=== PATIENT | male | born 1965 | race Caucasian/White ===

== ENCOUNTER 2017-05-23 16:17 | Inpatient (IN) | payer MEDICAID, OTHER ==
[~2017-05-23] VITALS: Ht 172.7 cm; Wt 80.7 kg
[2017-05-23] MEDS ORDERED: SODIUM CHLORIDE 0.9% 1,000 ML IV ONE (20:07)
[2017-05-23] MEDS ORDERED: MORPHINE SULFATE 4 MG/ML CPJ (NOT FOR IM USE) IV STA (20:07)
[2017-05-23] MEDS ORDERED: ONDANSETRON HCL 4MG/2ML VIAL IV STA (20:07)
[2017-05-23 20:41] LABS: HEMATOCRIT. 32.4 % (42.0-52.0); HEMOGLOBIN. 11.1 g/dL (14.0-18.0); MEAN CORPUSCULAR HEMOGLOBIN 29.5 pg (28.0-32.0); MEAN CORPUSCULAR VOLUME 85.7 fL (80.0-94.0); MEAN PLATELET VOLUME 8.4 fl (7.4-10.4); PLATELET 217 x1000/uL (130-400); RED BLOOD CELL COUNT 3.78 mill/uL (4.7-6.1); RED CELL DISTRIBUTION WIDTH 14.8 % (11.6-14.6)
[2017-05-23 20:44] LABS: INR 1.1
[2017-05-23 20:49] LABS: CARBON DIOXIDE 28 mEq/L (21-32); CHLORIDE 107 mEq/L (98-107)
[2017-05-23 21:19] LABS: PLATELET ESTIMATE NORMAL
[2017-05-23] MEDS ORDERED: ENOXAPARIN 40MG/0.4ML SYR SUBCUT ONE (22:00)
[2017-05-23] MEDS ORDERED: CEFTRIAXONE SODIUM 1 G/VIAL IM ONE (22:00)
[2017-05-23 22:11] LABS: CLARITY URINE CLEAR (CLEAR); COLOR URINE YELLOW (YELLOW); GLUCOSE URINE NEGATIVE (NEGATIVE); KETONES URINE NEGATIVE (NEGATIVE); LEUKOCYTE ESTERASE URINE 2+ (NEGATIVE); NITRITE URINE NEGATIVE (NEGATIVE); OCCULT BLOOD URINE 1+ (NEGATIVE); PH URINE 7.5 (4.5-8.0); PROTEIN URINE TRACE (NEGATIVE); SPECIFIC GRAVITY URINE 1.015 (1.005-1.030)
[2017-05-23] MEDS ORDERED: SODIUM CHLORIDE 0.9% 1,000 ML IV SCH (23:58)
[2017-05-24] MEDS ORDERED: ENOXAPARIN 40MG/0.4ML SYR SUBCUT SCH
[2017-05-24] MEDS ORDERED: DOCUSATE SODIUM 100MG CAPSULE PO PRN ×2 (01:00)
[2017-05-24] MEDS: SODIUM CHLORIDE 0.9% 1,000 ML IV SCH (01:00)
[2017-05-24] MEDS ORDERED: IPRATROPIUM/ALBUTEROL 0.5-3(2.5)MG/3ML NEB INH PRN ×2 (01:00)
[2017-05-24] MEDS ORDERED: ACETAMINOPHEN 325MG TABLET PO PRN ×2 (01:00)
[2017-05-24] MEDS ORDERED: CLONIDINE 0.1MG TABLET PO PRN ×2 (01:00)
[2017-05-24] MEDS ORDERED: MAGNESIUM/ALUMINUM HYDROXIDE/SIMETHICONE 30ML UDC PO PRN ×2 (01:00)
[2017-05-24] MEDS ORDERED: ONDANSETRON HCL 4MG/2ML VIAL IV PRN ×2 (01:00)
[2017-05-24 01:16] LABS: *AMPHETAMINES SCREEN URINE NEGATIVE (NEGATIVE); *BARBITURATES SCREEN URINE NEGATIVE (NEGATIVE); *BENZODIAZEPINES SCREEN URINE NEGATIVE (NEGATIVE); *COCAINE SCREEN URINE NEGATIVE (NEGATIVE); CANNABINOID URINE SCREEN NEGATIVE (NEGATIVE); METHADONE URINE SCREEN NEGATIVE (NEGATIVE); OPIATES URINE SCREEN PRESUMTIVE POSITIVE (NEGATIVE); PHENCYCLIDINE URINE SCREEN NEGATIVE (NEGATIVE)
[2017-05-24 01:30] VITALS: BP 99/56
[2017-05-24 04:00] VITALS: BP 108/71
[2017-05-24] MEDS ORDERED: CEFTRIAXONE 1 G PREMIX 50 ML IV SCH ×2 (04:00)
[2017-05-24 07:14] LABS: CARBON DIOXIDE 26 mEq/L (21-32); CHLORIDE 107 mEq/L (98-107); LDL CHOLESTEROL 89 mg/dL (5-100)
[2017-05-24 07:22] LABS: HDL CHOLESTEROL 29 mg/dL (40-59)
[2017-05-24 07:55] LABS: CARCINO EMBRYONIC ANTIGEN 24.5 ng/ml
[2017-05-24 08:00] VITALS: BP 107/63
[2017-05-24 08:03] LABS: PROSTRATE SPECIFIC AG TOTAL 0.09 ng/mL (0.0-4.0)
[2017-05-24] MEDS: ENOXAPARIN 40MG/0.4ML SYR SUBCUT SCH (09:24)
[2017-05-24] MEDS: TRAMADOL 50MG TABLET PO PRN ×2 (10:30→20:41)
[2017-05-24] MEDS: CEFTRIAXONE 1 G PREMIX 50 ML IV SCH (10:40)
[2017-05-24 12:00] VITALS: BP 101/64
[2017-05-24] MEDS ORDERED: DEXTROSE 50% WATER 50ML SYRINGE IV PRN (12:45)
[2017-05-24] MEDS: BLOOD SUGAR DIAGNOSTIC STRIP TEST SCH ×3 (12:53→20:41)
[2017-05-24] MEDS: INSULIN LISPRO 100 UNITS/ML SUBCUT SCH ×3 (13:08→20:41)
[2017-05-24] MEDS: MORPHINE SULFATE 4 MG/ML CPJ (NOT FOR IM USE) IV PRN ×3 (13:33→23:38)
[2017-05-24 16:00] VITALS: BP 97/65
[2017-05-24 20:00] VITALS: BP 98/54
[2017-05-25] VITALS: BP 114/66
[2017-05-25 04:00] VITALS: BP 94/50
[2017-05-25] MEDS: SODIUM CHLORIDE 0.9% 1,000 ML IV SCH ×3 (06:16→23:59)
[2017-05-25] MEDS: MORPHINE SULFATE 4 MG/ML CPJ (NOT FOR IM USE) IV PRN ×4 (06:18→19:56)
[2017-05-25] MEDS: BLOOD SUGAR DIAGNOSTIC STRIP TEST SCH ×4 (06:54→21:00)
[2017-05-25 07:37] VITALS: BP 115/75
[2017-05-25] MEDS: INSULIN LISPRO 100 UNITS/ML SUBCUT SCH ×4 (07:50→21:00)
[2017-05-25] MEDS: CEFTRIAXONE 1 G PREMIX 50 ML IV SCH (08:20)
[2017-05-25] MEDS: ENOXAPARIN 40MG/0.4ML SYR SUBCUT SCH (08:21)
[2017-05-25 12:08] VITALS: BP 105/54
[2017-05-25 15:50] VITALS: BP 98/47
[2017-05-25 20:00] VITALS: BP 110/60
[2017-05-26] VITALS (13 sets, daily range): BP systolic 100–122; BP diastolic 43–81
[2017-05-26] MEDS: MORPHINE SULFATE 4 MG/ML CPJ (NOT FOR IM USE) IV PRN ×4 (00:01→19:55)
[2017-05-26 05:45] LABS: CHLORIDE 105 mEq/L (98-107)
[2017-05-26 05:57] LABS: CARBON DIOXIDE 27 mEq/L (21-32)
[2017-05-26 06:02] LABS: BASOPHILS % 0.5 % (0.0-2.0); EOSINOPHILS % 0.1 % (0.0-5.0); HEMATOCRIT. 32.2 % (42.0-52.0); HEMOGLOBIN. 11.1 g/dL (14.0-18.0); LYMPHOCYTES % 31.4 % (20.0-50.0); MEAN CORPUSCULAR VOLUME 84.4 fL (80.0-94.0); MEAN PLATELET VOLUME 7.7 fl (7.4-10.4); PLATELET 247 x1000/uL (130-400); RED BLOOD CELL COUNT 3.81 mill/uL (4.7-6.1); RED CELL DISTRIBUTION WIDTH 14.4 % (11.6-14.6)
[2017-05-26] MEDS: BLOOD SUGAR DIAGNOSTIC STRIP TEST SCH ×4 (07:28→20:02)
[2017-05-26] MEDS: INSULIN LISPRO 100 UNITS/ML SUBCUT SCH ×4 (07:50→20:02)
[2017-05-26] MEDS: ENOXAPARIN 40MG/0.4ML SYR SUBCUT SCH (08:20)
[2017-05-26] MEDS: SODIUM CHLORIDE 0.9% 1,000 ML IV SCH ×2 (11:46→20:02)
[2017-05-26] MEDS: CEFTRIAXONE 1 G PREMIX 50 ML IV SCH (11:46)
[2017-05-26] MEDS ORDERED: CEPH500C2 PO (12:14)
[2017-05-26] MEDS ORDERED: DOCU-272 PO (12:14)
[2017-05-26] MEDS ORDERED: SULF1TAB48 PO (12:14)
[2017-05-26] MEDS ORDERED: ZOLP5TAB8 PO (12:14)
[2017-05-26] MEDS ORDERED: VENL150C2 PO (12:14)
[2017-05-26] MEDS ORDERED: TRAZ-132 PO (12:14)
[2017-05-26] MEDS ORDERED: MORP60TA6 PO (12:14)
[2017-05-26] MEDS ORDERED: METF500T4 PO (12:14)
[2017-05-26] MEDS ORDERED: TAMS0.4C31 PO (12:14)
[2017-05-26] MEDS ORDERED: FENTANYL CITRATE/PF 50MCG/ML 2ML VIAL ONE (13:15)
[2017-05-26] MEDS ORDERED: LIDOCAINE HCL 1% 20ML VIAL (Pyxis) INJ ONE (13:41)
[2017-05-26] MEDS ORDERED: SODIUM BICARBONATE 4% (2.4MEQ) 5ML VIAL IV ONE (13:42)
[2017-05-26] MEDS ORDERED: FENTANYL CITRATE/PF 50MCG/ML 2ML VIAL IV ONE (14:30)
[2017-05-26] MEDS: TAMSULOSIN HCL 0.4MG SR CAPSULE PO SCH (18:17)
[2017-05-26] MEDS: METFORMIN HCL 500MG TABLET PO SCH (18:42)
[2017-05-26] MEDS: DOCUSATE SODIUM 100MG CAPSULE PO SCH (18:43)
[2017-05-26] MEDS ORDERED: ZOLPIDEM TARTRATE 5MG TABLET PO SCH (21:00)
[2017-05-26] MEDS ORDERED: TRAZODONE HCL 100MG TABLET PO SCH (21:00)
[2017-05-27] VITALS (7 sets, daily range): BP systolic 102–118; BP diastolic 55–78
[2017-05-27] MEDS: MORPHINE SULFATE 4 MG/ML CPJ (NOT FOR IM USE) IV PRN ×2 (02:49→09:57)
[2017-05-27] MEDS: BLOOD SUGAR DIAGNOSTIC STRIP TEST SCH ×3 (07:20→17:46)
[2017-05-27 07:34] LABS: BASOPHILS % 0.4 % (0.0-2.0); EOSINOPHILS % 0.1 % (0.0-5.0); HEMATOCRIT. 32.7 % (42.0-52.0); HEMOGLOBIN. 11.2 g/dL (14.0-18.0); LYMPHOCYTES % 32.7 % (20.0-50.0); MEAN CORPUSCULAR HEMOGLOBIN 29.1 pg (28.0-32.0); MEAN CORPUSCULAR VOLUME 84.8 fL (80.0-94.0); MEAN PLATELET VOLUME 7.6 fl (7.4-10.4); MONOCYTES % 10.5 % (2.0-8.0); NEUTROPHILS % 56.3 % (40.0-76.0); PLATELET 264 x1000/uL (130-400); RED BLOOD CELL COUNT 3.85 mill/uL (4.7-6.1); RED CELL DISTRIBUTION WIDTH 14.3 % (11.6-14.6)
[2017-05-27] MEDS: INSULIN LISPRO 100 UNITS/ML SUBCUT SCH ×3 (07:50→17:46)
[2017-05-27] MEDS ORDERED: IOHEXOL-300 100 ML BOTTLE ONE (08:29)
[2017-05-27 08:47] LABS: CARBON DIOXIDE 26 mEq/L (21-32); CHLORIDE 105 mEq/L (98-107)
[2017-05-27] MEDS: TAMSULOSIN HCL 0.4MG SR CAPSULE PO SCH (09:37)
[2017-05-27] MEDS: METFORMIN HCL 500MG TABLET PO SCH ×2 (09:37→17:53)
[2017-05-27] MEDS: DOCUSATE SODIUM 100MG CAPSULE PO SCH ×2 (09:37→17:00)
[2017-05-27] MEDS: ENOXAPARIN 40MG/0.4ML SYR SUBCUT SCH (09:37)
[2017-05-27] MEDS: CEFTRIAXONE 1 G PREMIX 50 ML IV SCH (09:38)
[2017-05-27] MEDS: SODIUM CHLORIDE 0.9% 1,000 ML IV SCH (09:39)
== END 2017-05-27 20:49 | disposition home or self-care (01) | DRG 254 ==
LOC: ER 16:18 → 6EST 22:32 → ENRESERV 23:06 → ER 05-24 00:45
PROVIDERS: ADMIT Internal Medicine; ATTEND Internal Medicine
PROC: 0DBP3ZX Excision of Rectum, Percutaneous Approach, Diagnostic (ICD-10-PCS; principal; 2017-05-26)
DX: R19.09 Other intra-abdominal and pelvic swelling, mass and lump (principal); R16.2 Hepatomegaly with splenomegaly, not elsewhere classified; I10 Essential (primary) hypertension; N39.0 Urinary tract infection, site not specified; E11.9 Type 2 diabetes mellitus without complications; J45.909 Unspecified asthma, uncomplicated; Z85.048 Personal history of other malignant neoplasm of rectum, rectosigmoid junction, and anus; Z93.3 Colostomy status; Z86.718 Personal history of other venous thrombosis and embolism; Z79.84 Long term (current) use of oral hypoglycemic drugs; G89.3 Neoplasm related pain (acute) (chronic)
CPT/HCPCS: 36415; 71010; 74176; 76870; 77012; 80048; 80053; 80061; 80305; 81001; 82378; 82962; 83690; 84153; 84443; 85025; 85610; 87040; 87086; 88305; 93005; 93971; 93976; 96374; 96375; 99285; C1893; J0696; J1650; J1815; J2270; J2405; J3010; J3490; J7030; Q9967

== ENCOUNTER 2018-03-06 16:08 | Inpatient (IN) | payer MEDICAID, OTHER ==
[~2018-03-06] VITALS: Ht 167.6 cm; Wt 86.2 kg
[~2018-03-06 16:08] MED LIST: CEPH500C2 PO; DOCU-272 PO; METF500T6 PO; MORP60TA6 PO; SULF1TAB48 PO; TAMS0.4C31 PO; TRAZ-213 PO; VENL150C2 PO; ZOLP5TAB8 PO
[2018-03-06] MEDS ORDERED: SODIUM CHLORIDE 0.9% 1,000 ML IV ONE ×2 (17:39→21:16)
[2018-03-06 18:15] LABS: MEAN CORPUSCULAR HEMOGLOBIN 23.9 pg (28.0-32.0); MEAN CORPUSCULAR VOLUME 76.9 fL (80.0-94.0); MEAN PLATELET VOLUME 7.4 fl (7.4-10.4); PLATELET 168 x1000/uL (130-400); RED BLOOD CELL COUNT 2.79 mill/uL (4.7-6.1); RED CELL DISTRIBUTION WIDTH 19.8 % (11.6-14.6)
[2018-03-06 18:21] LABS: HEMATOCRIT. 21.4 % (42.0-52.0); HEMOGLOBIN. 6.7 g/dL (14.0-18.0)
[2018-03-06 18:22] LABS: INR 1.1
[2018-03-06 18:23] LABS: CHLORIDE 90 mEq/L (98-107)
[2018-03-06] MEDS ORDERED: PIPERACILLIN/TAZ 3.375G PREMIX 50 ML IV ONE (18:30)
[2018-03-06] MEDS ORDERED: SODIUM CHLORIDE 0.9% 1000ML BAG (SEPSIS BOLUS) IV ONE (18:30)
[2018-03-06] MEDS ORDERED: MORPHINE SULFATE 2 MG/ML CPJ (NOT FOR IM USE) IV ONE (18:30)
[2018-03-06] MEDS ORDERED: VANCOMYCIN 1 G PREMIX 200 ML IV ONE (18:30)
[2018-03-06] MEDS ORDERED: SODIUM POLYSTYRENE SULFONATE 15 G/60 ML BOT PO ONE (19:00)
[2018-03-06] MEDS ORDERED: INSULIN REGULAR (HUMULIN R) 300UNITS/3ML IV ONE (19:00)
[2018-03-06] MEDS ORDERED: CALCIUM GLUCONATE 100MG/ML 10ML VIAL IV ONE (19:00)
[2018-03-06] MEDS ORDERED: DEXTROSE 50% WATER 50ML SYRINGE IV ONE (19:00)
[2018-03-06] MEDS ORDERED: SODIUM BICARBONATE 8.4% 1 MEQ/ML 50ML SYR IV ONE ×3 (19:00→22:45)
[2018-03-06] MEDS ORDERED: ALBUTEROL (0.083%) 2.5MG/3ML NEB HHN ONE (19:00)
[2018-03-06 19:30] LABS: NUCLEATED RED BLOOD CELLS 1 /100 WBC; PLATELET ESTIMATE NORMAL
[2018-03-06 20:08] LABS: AMMONIA 27 uMol/L (<32)
[2018-03-06] MEDS ORDERED: DOPAMINE 400MG PREMIX 250 ML IV ONE (21:30)
[2018-03-06 22:01] LABS: BG BASE EXCESS -19.7 mmol/L (-2.0-2.0); BG CARBOXYHEMOGLOBIN 0.3 % (0.5-1.5); BG DEOXYHEMOGLOBIN 3.3 % (0.0-5.0); BG FRACTION INSPIRED OXYGEN 28; BG HCO3 ACT 5.5 mmol/L (22.0-26.0); BG METHEMOGLOBIN 0.6 % (0.0-1.5); BG OXYGEN SATURATION 96.7 % (92.0-98.5); BG OXYHEMOGLOBIN 95.8 % (94.0-97.0); BG PCO2 12.4 mmHg (35.0-45.0); BG PH 7.261 (7.350-7.450); BG PO2 116.6 mmHg (75.0-100.0); BG SAMPLE SITE RIGHT BRACHIAL; BG TOTAL HEMOGLOBIN 7.1 g/dL (12.0-18.0); BG VENT MODE NASAL CANNULA
[2018-03-06] MEDS ORDERED: MORPHINE SULFATE 4 MG/ML CPJ (NOT FOR IM USE) IV ONE (22:30)
[2018-03-06] MEDS ORDERED: ONDANSETRON HCL 4MG/2ML VIAL IV PRN (22:45)
[2018-03-06] MEDS ORDERED: IPRATROPIUM/ALBUTEROL 0.5-3(2.5)MG/3ML NEB INH PRN (22:45)
[2018-03-06] MEDS ORDERED: PIPERACILLIN/TAZ 3.375G PREMIX 50 ML IV SCH (22:45)
[2018-03-06 23:42] LABS: CLARITY URINE CLOUDY (CLEAR); COLOR URINE RED (YELLOW); KETONES URINE NEGATIVE (NEGATIVE); LEUKOCYTE ESTERASE URINE 2+ (NEGATIVE); NITRITE URINE POSITIVE (NEGATIVE); OCCULT BLOOD URINE 3+ (NEGATIVE); PH URINE 5.5 (4.5-8.0); PROTEIN URINE 3+ (NEGATIVE); SPECIFIC GRAVITY URINE 1.014 (1.005-1.030); UROBILINOGEN URINE 0.2 E.U./dL (0.2-1.0)
[2018-03-07] VITALS (114 sets, daily range): BP systolic 58–149; BP diastolic 29–117
[2018-03-07] MEDS ORDERED: LORAZEPAM 2MG/ML CPJ IV ONE (00:15)
[2018-03-07] MEDS ORDERED: LEVETIRACETAM 500MG PREMIX 100 ML IV ONE (00:15)
[2018-03-07 00:39] LABS: *AMPHETAMINES SCREEN URINE NEGATIVE (NEGATIVE); *BARBITURATES SCREEN URINE NEGATIVE (NEGATIVE); *BENZODIAZEPINES SCREEN URINE NEGATIVE (NEGATIVE); *COCAINE SCREEN URINE NEGATIVE (NEGATIVE); CANNABINOID URINE SCREEN NEGATIVE (NEGATIVE); OPIATES URINE SCREEN PRESUMTIVE POSITIVE (NEGATIVE); PHENCYCLIDINE URINE SCREEN NEGATIVE (NEGATIVE)
[2018-03-07 00:40] LABS: METHADONE URINE SCREEN NEGATIVE (NEGATIVE)
[2018-03-07] MEDS: DOPAMINE 800MG PREMIX 250 ML IV NR ×2 (00:55→01:25)
[2018-03-07] MEDS ORDERED: VANCOMYCIN 1 G PREMIX 200 ML IV NR (02:00)
[2018-03-07] MEDS ORDERED: SODIUM CHLORIDE 0.9% 1,000 ML IV SCH (05:00)
[2018-03-07 05:19] LABS: CHLORIDE 97 mEq/L (98-107)
[2018-03-07 05:24] LABS: HEMATOCRIT. 28.2 % (42.0-52.0); HEMOGLOBIN. 8.9 g/dL (14.0-18.0); MEAN CORPUSCULAR HEMOGLOBIN 25.3 pg (28.0-32.0); MEAN CORPUSCULAR VOLUME 79.9 fL (80.0-94.0); MEAN PLATELET VOLUME 7.9 fl (7.4-10.4); PLATELET 140 x1000/uL (130-400); RED BLOOD CELL COUNT 3.53 mill/uL (4.7-6.1); RED CELL DISTRIBUTION WIDTH 21.1 % (11.6-14.6)
[2018-03-07 05:27] LABS: LDL CHOLESTEROL 47 mg/dL (5-100)
[2018-03-07 05:29] LABS: CREATINE KINASE 200 IU/L (39-308); HDL CHOLESTEROL 27 mg/dL (40-59)
[2018-03-07 05:32] LABS: CREATINE KINASE MB FRACTION 5.8 ng/mL (0.5-3.6)
[2018-03-07] MEDS: MORPHINE SULFATE 4 MG/ML CPJ (NOT FOR IM USE) IV PRN ×2 (06:11→13:03)
[2018-03-07] MEDS ORDERED: VANCOMYCIN 500 MG PREMIX 100 ML IV NR (06:30)
[2018-03-07] MEDS: PIPERACILLIN/TAZ 2.25G PREMIX 50 ML IV SCH ×3 (06:59→22:30)
[2018-03-07] MEDS ORDERED: DEXTROSE 50% WATER 50ML SYRINGE IV NR (07:10)
[2018-03-07] MEDS ORDERED: SODIUM BICARBONATE 8.4% 1 MEQ/ML 50ML SYR IV NR (07:10)
[2018-03-07] MEDS ORDERED: INSULIN REGULAR (HUMULIN R) 300UNITS/3ML IV NR (07:15)
[2018-03-07] MEDS ORDERED: CALCIUM CHLORIDE 1GM/10ML SYR IV ONE (07:15)
[2018-03-07] MEDS ORDERED: CALCIUM CHLORIDE 2,000 MG in DEXT 5% WATER 90 ML IV NR (07:30)
[2018-03-07] MEDS ORDERED: MANNITOL 20% (20GM/100ML) BAG 500ML PREMIX IV ONE (07:30)
[2018-03-07 08:31] LABS: PLATELET ESTIMATE NORMAL
[2018-03-07] MEDS ORDERED: MANNITOL 20% 125 ML IV PRN (08:45)
[2018-03-07] MEDS ORDERED: MORPHINE SULFATE 4 MG/ML CPJ (NOT FOR IM USE) IV SCH (08:45)
[2018-03-07 09:01] LABS: BG CARBOXYHEMOGLOBIN 0.3 % (0.5-1.5); BG DEOXYHEMOGLOBIN 2.2 % (0.0-5.0); BG HCO3 ACT 7.8 mmol/L (22.0-26.0); BG METHEMOGLOBIN 0.2 % (0.0-1.5); BG OXYGEN SATURATION 97.8 % (92.0-98.5); BG OXYHEMOGLOBIN 97.3 % (94.0-97.0); BG PH 7.335 (7.350-7.450); BG PO2 114.8 mmHg (75.0-100.0); BG SAMPLE SITE LEFT RADIAL; BG VENT MODE NASAL CANNULA
[2018-03-07] MEDS ORDERED: DOPAMINE 400MG PREMIX 250 ML IV PRN (10:00)
[2018-03-07] MEDS ORDERED: DEXT 5%/0.9% NACL 1,000 ML IV SCH (10:45)
[2018-03-07] MEDS ORDERED: ALBUMIN HUMAN 25GM/100ML (25%) IV SCH (11:03)
[2018-03-07] MEDS: NOREPINEPHRINE 8 MG in DEXT 5% WATER 250 ML IV PRN (11:22)
[2018-03-07] MEDS: PROPOFOL 10MG/ML 100ML 100 ML IV PRN (12:50)
[2018-03-07] MEDS ORDERED: DEXTROSE 50% WATER 50ML SYRINGE IV PRN (13:45)
[2018-03-07] MEDS ORDERED: IPRATROPIUM/ALBUTEROL 0.5-3(2.5)MG/3ML NEB HHN PRN (14:00)
[2018-03-07] MEDS: DEXTROSE 50% WATER 50ML SYRINGE IV PRN ×2 (14:06→20:18)
[2018-03-07 14:21] LABS: BG CARBOXYHEMOGLOBIN 0.7 % (0.5-1.5); BG DEOXYHEMOGLOBIN 3.8 % (0.0-5.0); BG METHEMOGLOBIN 0.2 % (0.0-1.5); BG OXYGEN SATURATION 96.2 % (92.0-98.5); BG OXYHEMOGLOBIN 95.3 % (94.0-97.0); BG PCO2 29.3 mmHg (35.0-45.0); BG PH 7.474 (7.350-7.450); BG PO2 87.6 mmHg (75.0-100.0); BG SAMPLE SITE RIGHT RADIAL; BG TIDAL VOLUME(mL) 600 mL; BG VENT MODE VENT - A/C; BG VENT RATE 12 set
[2018-03-07] MEDS: DOPAMINE 800MG PREMIX 250 ML IV PRN (14:21)
[2018-03-07] MEDS ORDERED: NORMAL SALINE 0.9% 10 ML SYR ONE (14:35)
[2018-03-07] MEDS ORDERED: VECURONIUM BROMIDE 10 MG/VIAL IV ONE (14:35)
[2018-03-07] MEDS ORDERED: ETOMIDATE 2MG/ML 10ML VIAL IV ONE (14:35)
[2018-03-07 14:54] LABS: HEMOGLOBIN 7.8 g/dL (14.0-18.0)
[2018-03-07 15:56] LABS: CREATINE KINASE 130 IU/L (39-308)
[2018-03-07] MEDS: BLOOD SUGAR DIAGNOSTIC STRIP TEST SCH ×2 (18:02→23:57)
[2018-03-07] MEDS: NOREPINEPHRINE 16 MG in DEXT 5% WATER 234 ML IV PRN (18:06)
[2018-03-07] MEDS ORDERED: PANTOPRAZOLE SODIUM 40 MG/VIAL IV NR (20:00)
[2018-03-07] MEDS ORDERED: VANCOMYCIN 750 MG PREMIX 150 ML IV SCH (21:00)
[2018-03-07] MEDS: IPRATROPIUM/ALBUTEROL 0.5-3(2.5)MG/3ML NEB HHN SCH (21:09)
[2018-03-07 23:38] LABS: HEMATOCRIT 34.4 % (42.0-52.0); HEMOGLOBIN 11.4 g/dL (14.0-18.0)
[2018-03-08] VITALS (99 sets, daily range): BP systolic 78–151; BP diastolic 37–99
[2018-03-08] MEDS: PROPOFOL 10MG/ML 100ML 100 ML IV PRN ×4 (00:52→23:19)
[2018-03-08] MEDS: DOPAMINE 800MG PREMIX 250 ML IV PRN ×2 (03:38→15:27)
[2018-03-08] MEDS: PIPERACILLIN/TAZ 2.25G PREMIX 50 ML IV SCH ×3 (05:37→21:22)
[2018-03-08] MEDS: BLOOD SUGAR DIAGNOSTIC STRIP TEST SCH ×4 (05:37→23:20)
[2018-03-08 06:54] LABS: PHOSPHORUS 8.5 mg/dL (2.5-4.9)
[2018-03-08] MEDS: NOREPINEPHRINE 16 MG in DEXT 5% WATER 234 ML IV PRN ×2 (07:30→21:22)
[2018-03-08 07:44] LABS: HEPATITIS B SURFACE ANTIGEN NEGATIVE
[2018-03-08] MEDS: IPRATROPIUM/ALBUTEROL 0.5-3(2.5)MG/3ML NEB HHN SCH ×4 (08:29→20:11)
[2018-03-08] MEDS: PANTOPRAZOLE SODIUM 40 MG/VIAL IV SCH (09:21)
[2018-03-08 09:25] LABS: BASOPHILS % 0.2 % (0.0-2.0); EOSINOPHILS % 0.1 % (0.0-5.0); HEMATOCRIT. 29.9 % (42.0-52.0); HEMOGLOBIN. 10.1 g/dL (14.0-18.0); LYMPHOCYTES % 8.7 % (20.0-50.0); MEAN CORPUSCULAR HEMOGLOBIN 27.1 pg (28.0-32.0); MEAN PLATELET VOLUME 8.3 fl (7.4-10.4); MONOCYTES % 4.4 % (2.0-8.0); NEUTROPHILS % 86.6 % (40.0-76.0); RED BLOOD CELL COUNT 3.74 mill/uL (4.7-6.1); RED CELL DISTRIBUTION WIDTH 20.5 % (11.6-14.6)
[2018-03-08 09:27] LABS: PLATELET 52 x1000/uL (130-400)
[2018-03-08] MEDS ORDERED: SODIUM BICARBONATE 8.4% 1 MEQ/ML 50ML SYR IV SCH (09:45)
[2018-03-08] MEDS ORDERED: CALCIUM GLUCONATE 1,000 MG in DEXT 5% WATER 90 ML IV SCH (10:30)
[2018-03-08] MEDS: SODIUM BICARBONATE 100 MEQ in DEXT 10% WATER 900 ML IV SCH (12:05)
[2018-03-09] VITALS (86 sets, daily range): BP systolic 81–148; BP diastolic 46–108
[2018-03-09] MEDS: IPRATROPIUM/ALBUTEROL 0.5-3(2.5)MG/3ML NEB HHN SCH ×6 (01:33→20:53)
[2018-03-09] MEDS: DOPAMINE 800MG PREMIX 250 ML IV PRN (03:47)
[2018-03-09 05:47] LABS: BASOPHILS % 0.2 % (0.0-2.0); EOSINOPHILS % 0.2 % (0.0-5.0); HEMATOCRIT. 29.4 % (42.0-52.0); HEMOGLOBIN. 9.8 g/dL (14.0-18.0); MEAN CORPUSCULAR HEMOGLOBIN 27.1 pg (28.0-32.0); MEAN CORPUSCULAR VOLUME 81.5 fL (80.0-94.0); MEAN PLATELET VOLUME 9.2 fl (7.4-10.4); MONOCYTES % 3.4 % (2.0-8.0); NEUTROPHILS % 88.2 % (40.0-76.0); RED BLOOD CELL COUNT 3.61 mill/uL (4.7-6.1); RED CELL DISTRIBUTION WIDTH 20.3 % (11.6-14.6)
[2018-03-09 06:26] LABS: PLATELET 41 x1000/uL (130-400)
[2018-03-09] MEDS: BLOOD SUGAR DIAGNOSTIC STRIP TEST SCH ×4 (06:26→23:27)
[2018-03-09] MEDS: PIPERACILLIN/TAZ 2.25G PREMIX 50 ML IV SCH ×3 (06:33→21:29)
[2018-03-09] MEDS: FENTANYL CITRATE/PF 500 MCG in SODIUM CHLORIDE 0.9% 40 ML IV PRN ×3 (07:55→22:27)
[2018-03-09 07:57] LABS: BG BASE EXCESS -5.3 mmol/L (-2.0-2.0); BG FRACTION INSPIRED OXYGEN 50; BG HCO3 ACT 16.6 mmol/L (22.0-26.0); BG PCO2 24.3 mmHg (35.0-45.0); BG PH 7.452 (7.350-7.450); BG PO2 143.3 mmHg (75.0-100.0); BG SAMPLE SITE RIGHT RADIAL; BG TIDAL VOLUME(mL) 600 mL; BG VENT MODE VENT - A/C; BG VENT RATE 12 set
[2018-03-09] MEDS: MIDAZOLAM HCL 50 MG in DEXTROSE 5% WATER 40 ML IV PRN ×2 (07:57→13:10)
[2018-03-09] MEDS: PANTOPRAZOLE SODIUM 40 MG/VIAL IV SCH (08:06)
[2018-03-09] MEDS: PHENYLEPHRINE 40 MG in DEXT 5% WATER 246 ML IV PRN ×3 (11:00→20:57)
[2018-03-09] MEDS: SODIUM BICARBONATE 100 MEQ in DEXT 10% WATER 900 ML IV SCH (16:19)
[2018-03-09] MEDS: NOREPINEPHRINE 16 MG in DEXT 5% WATER 234 ML IV PRN (16:22)
[2018-03-10] VITALS (94 sets, daily range): BP systolic 82–124; BP diastolic 49–82
[2018-03-10] MEDS: MIDAZOLAM HCL 50 MG in DEXTROSE 5% WATER 40 ML IV PRN ×2 (00:14→11:19)
[2018-03-10] MEDS: IPRATROPIUM/ALBUTEROL 0.5-3(2.5)MG/3ML NEB HHN SCH ×6 (01:24→20:12)
[2018-03-10] MEDS: PHENYLEPHRINE 40 MG in DEXT 5% WATER 246 ML IV PRN ×3 (02:19→20:55)
[2018-03-10] MEDS: NOREPINEPHRINE 16 MG in DEXT 5% WATER 234 ML IV PRN ×2 (02:55→18:04)
[2018-03-10 04:46] LABS: BASOPHILS % 0.3 % (0.0-2.0); EOSINOPHILS % 0.9 % (0.0-5.0); HEMATOCRIT. 27.9 % (42.0-52.0); HEMOGLOBIN. 9.3 g/dL (14.0-18.0); LYMPHOCYTES % 9.6 % (20.0-50.0); MEAN CORPUSCULAR HEMOGLOBIN 27.4 pg (28.0-32.0); MEAN CORPUSCULAR VOLUME 82.4 fL (80.0-94.0); MONOCYTES % 3.3 % (2.0-8.0); NEUTROPHILS % 85.9 % (40.0-76.0); RED BLOOD CELL COUNT 3.38 mill/uL (4.7-6.1); RED CELL DISTRIBUTION WIDTH 19.8 % (11.6-14.6)
[2018-03-10] MEDS: BLOOD SUGAR DIAGNOSTIC STRIP TEST SCH ×3 (05:29→18:08)
[2018-03-10] MEDS: PIPERACILLIN/TAZ 2.25G PREMIX 50 ML IV SCH ×3 (05:29→21:00)
[2018-03-10 07:20] LABS: BG BASE EXCESS -7.2 mmol/L (-2.0-2.0); BG CARBOXYHEMOGLOBIN 0.3 % (0.5-1.5); BG DEOXYHEMOGLOBIN 1.7 % (0.0-5.0); BG FRACTION INSPIRED OXYGEN 40; BG HCO3 ACT 17.1 mmol/L (22.0-26.0); BG METHEMOGLOBIN 0.5 % (0.0-1.5); BG OXYGEN SATURATION 98.3 % (92.0-98.5); BG OXYHEMOGLOBIN 97.5 % (94.0-97.0); BG PCO2 30.1 mmHg (35.0-45.0); BG PH 7.372 (7.350-7.450); BG PO2 153.3 mmHg (75.0-100.0); BG SAMPLE SITE RIGHT BRACHIAL; BG TIDAL VOLUME(mL) 550 mL; BG TOTAL HEMOGLOBIN 9.6 g/dL (12.0-18.0); BG VENT MODE VENT - A/C; BG VENT RATE 16 set
[2018-03-10] MEDS ORDERED: CALCIUM GLUCONATE 1,000 MG in DEXT 5% WATER 90 ML IV NR (08:00)
[2018-03-10] MEDS: PANTOPRAZOLE SODIUM 40 MG/VIAL IV SCH (09:46)
[2018-03-10] MEDS: SODIUM BICARBONATE 100 MEQ in SODIUM CHLORIDE 0.45% 1,000 ML IV SCH (09:46)
[2018-03-10 09:55] LABS: MEAN PLATELET VOLUME 9.6 fl (7.4-10.4); PLATELET 52 x1000/uL (130-400)
[2018-03-10] MEDS: FENTANYL CITRATE/PF 500 MCG in SODIUM CHLORIDE 0.9% 40 ML IV PRN ×2 (11:34→20:10)
[2018-03-11] VITALS (94 sets, daily range): BP systolic 93–135; BP diastolic 57–77
[2018-03-11] MEDS: IPRATROPIUM/ALBUTEROL 0.5-3(2.5)MG/3ML NEB HHN SCH ×6 (00:20→19:51)
[2018-03-11] MEDS: FENTANYL CITRATE/PF 500 MCG in SODIUM CHLORIDE 0.9% 40 ML IV PRN ×4 (02:23→23:53)
[2018-03-11] MEDS: PHENYLEPHRINE 40 MG in DEXT 5% WATER 246 ML IV PRN ×2 (03:42→20:58)
[2018-03-11] MEDS: MIDAZOLAM HCL 50 MG in DEXTROSE 5% WATER 40 ML IV PRN ×2 (03:47→17:49)
[2018-03-11 05:42] LABS: BASOPHILS % 0.3 % (0.0-2.0); EOSINOPHILS % 0.6 % (0.0-5.0); LYMPHOCYTES % 19.8 % (20.0-50.0); MEAN CORPUSCULAR HEMOGLOBIN 27.9 pg (28.0-32.0); MEAN PLATELET VOLUME 9.2 fl (7.4-10.4); MONOCYTES % 2.4 % (2.0-8.0); NEUTROPHILS % 76.9 % (40.0-76.0); RED BLOOD CELL COUNT 2.86 mill/uL (4.7-6.1); RED CELL DISTRIBUTION WIDTH 19.6 % (11.6-14.6)
[2018-03-11 06:12] LABS: PLATELET 47 x1000/uL (130-400)
[2018-03-11 06:36] LABS: PHOSPHORUS 9.2 mg/dL (2.5-4.9)
[2018-03-11] MEDS: BLOOD SUGAR DIAGNOSTIC STRIP TEST SCH ×4 (06:42→18:00)
[2018-03-11] MEDS: PIPERACILLIN/TAZ 2.25G PREMIX 50 ML IV SCH ×3 (06:43→23:11)
[2018-03-11] MEDS: NOREPINEPHRINE 16 MG in DEXT 5% WATER 234 ML IV PRN ×3 (07:43→20:57)
[2018-03-11] MEDS: PANTOPRAZOLE SODIUM 40 MG/VIAL IV SCH (09:24)
[2018-03-11] MEDS: MIDODRINE HCL 5MG TABLET PO SCH ×3 (10:00→17:00)
[2018-03-11 10:23] LABS: BG BASE EXCESS -6.3 mmol/L (-2.0-2.0); BG CARBOXYHEMOGLOBIN 0.3 % (0.5-1.5); BG DEOXYHEMOGLOBIN 1.5 % (0.0-5.0); BG FRACTION INSPIRED OXYGEN 40; BG HCO3 ACT 17.9 mmol/L (22.0-26.0); BG METHEMOGLOBIN 0.1 % (0.0-1.5); BG OXYGEN SATURATION 98.5 % (92.0-98.5); BG OXYHEMOGLOBIN 98.1 % (94.0-97.0); BG PCO2 30.5 mmHg (35.0-45.0); BG PH 7.387 (7.350-7.450); BG PO2 142.5 mmHg (75.0-100.0); BG SAMPLE SITE LEFT BRACHIAL; BG TIDAL VOLUME(mL) 550 mL; BG TOTAL HEMOGLOBIN 8.2 g/dL (12.0-18.0); BG VENT MODE VENT - A/C; BG VENT RATE 15 set
[2018-03-11] MEDS: SODIUM BICARBONATE 100 MEQ in SODIUM CHLORIDE 0.45% 1,000 ML IV SCH (12:00)
[2018-03-11] MEDS ORDERED: VANCOMYCIN 500 MG PREMIX 100 ML IV SCH (21:00)
[2018-03-12] VITALS (100 sets, daily range): BP systolic 80–150; BP diastolic 47–93
[2018-03-12] MEDS: IPRATROPIUM/ALBUTEROL 0.5-3(2.5)MG/3ML NEB HHN SCH ×6 (00:04→21:42)
[2018-03-12 05:09] LABS: BASOPHILS % 0.6 % (0.0-2.0); EOSINOPHILS % 1.7 % (0.0-5.0); LYMPHOCYTES % 21.7 % (20.0-50.0); MEAN CORPUSCULAR HEMOGLOBIN 27.9 pg (28.0-32.0); PLATELET 51 x1000/uL (130-400); RED BLOOD CELL COUNT 2.48 mill/uL (4.7-6.1); RED CELL DISTRIBUTION WIDTH 19.4 % (11.6-14.6)
[2018-03-12 05:20] LABS: HEMATOCRIT. 20.6 % (42.0-52.0); HEMOGLOBIN. 6.9 g/dL (14.0-18.0)
[2018-03-12] MEDS: PIPERACILLIN/TAZ 2.25G PREMIX 50 ML IV SCH (06:00)
[2018-03-12] MEDS: BLOOD SUGAR DIAGNOSTIC STRIP TEST SCH ×4 (06:00→17:41)
[2018-03-12 06:23] LABS: PHOSPHORUS 8.3 mg/dL (2.5-4.9)
[2018-03-12] MEDS: MIDAZOLAM HCL 50 MG in DEXTROSE 5% WATER 40 ML IV PRN ×2 (06:56→16:41)
[2018-03-12] MEDS: FENTANYL CITRATE/PF 500 MCG in SODIUM CHLORIDE 0.9% 40 ML IV PRN ×2 (06:57→14:40)
[2018-03-12 08:41] LABS: BG BASE EXCESS -5.5 mmol/L (-2.0-2.0); BG CARBOXYHEMOGLOBIN 0.3 % (0.5-1.5); BG DEOXYHEMOGLOBIN 5.8 % (0.0-5.0); BG FRACTION INSPIRED OXYGEN 40; BG HCO3 ACT 18.1 mmol/L (22.0-26.0); BG METHEMOGLOBIN 0.3 % (0.0-1.5); BG OXYGEN SATURATION 94.2 % (92.0-98.5); BG OXYHEMOGLOBIN 93.6 % (94.0-97.0); BG PCO2 27.7 mmHg (35.0-45.0); BG PH 7.432 (7.350-7.450); BG SAMPLE SITE LEFT RADIAL; BG TIDAL VOLUME(mL) 550 mL; BG TOTAL HEMOGLOBIN 7.7 g/dL (12.0-18.0); BG VENT MODE VENT - A/C; BG VENT RATE 16 set
[2018-03-12] MEDS: MIDODRINE HCL 5MG TABLET PO SCH ×3 (10:05→17:18)
[2018-03-12] MEDS: PANTOPRAZOLE SODIUM 40 MG/VIAL IV SCH (10:05)
[2018-03-12] MEDS: PHENYLEPHRINE 40 MG in DEXT 5% WATER 246 ML IV PRN ×2 (11:40→21:54)
[2018-03-12] MEDS: NOREPINEPHRINE 16 MG in DEXT 5% WATER 234 ML IV PRN ×2 (11:41→21:54)
[2018-03-12] MEDS ORDERED: CEFTAZIDIME PENTAHYDRATE 1 G in DEXTROSE 5% WATER 50 ML IV SCH (14:00)
[2018-03-12] MEDS: SODIUM BICARBONATE 100 MEQ in SODIUM CHLORIDE 0.45% 1,000 ML IV SCH (14:35)
[2018-03-12] MEDS ORDERED: VANCOMYCIN 1250MG in DEXTROSE 5% WATER 250ML IV NR (17:00)
[2018-03-12] MEDS ORDERED: FENTANYL CITRATE/PF 1,000 MCG in SODIUM CHLORIDE 0.9% 100 ML IV PRN (20:00)
[2018-03-12] MEDS: FENTANYL CITRATE/PF 1,000 MCG in SODIUM CHLORIDE 0.9% 80 ML IV PRN (20:31)
[2018-03-12 20:48] LABS: HEMATOCRIT 25.3 % (42.0-52.0); HEMOGLOBIN 8.7 g/dL (14.0-18.0)
[2018-03-13] VITALS (56 sets, daily range): BP systolic 37–130; BP diastolic 18–65
[2018-03-13] MEDS: BLOOD SUGAR DIAGNOSTIC STRIP TEST SCH ×3 (00:22→12:00)
[2018-03-13] MEDS: IPRATROPIUM/ALBUTEROL 0.5-3(2.5)MG/3ML NEB HHN SCH ×3 (00:54→11:09)
[2018-03-13] MEDS: FENTANYL CITRATE/PF 1,000 MCG in SODIUM CHLORIDE 0.9% 80 ML IV PRN ×2 (04:29→11:35)
[2018-03-13] MEDS: MIDAZOLAM HCL 50 MG in DEXTROSE 5% WATER 40 ML IV PRN (05:28)
[2018-03-13 05:42] LABS: HEMATOCRIT. 24.3 % (42.0-52.0); HEMOGLOBIN. 8.4 g/dL (14.0-18.0); MEAN CORPUSCULAR HEMOGLOBIN 28.9 pg (28.0-32.0); MEAN CORPUSCULAR VOLUME 83.8 fL (80.0-94.0); MEAN PLATELET VOLUME 8.9 fl (7.4-10.4); PLATELET 59 x1000/uL (130-400); RED CELL DISTRIBUTION WIDTH 18.8 % (11.6-14.6)
[2018-03-13] MEDS ORDERED: SODIUM CHLORIDE 0.45% 1,000 ML IV SCH (07:30)
[2018-03-13 07:35] LABS: BG BASE EXCESS 0.2 mmol/L (-2.0-2.0); BG CARBOXYHEMOGLOBIN 0.3 % (0.5-1.5); BG DEOXYHEMOGLOBIN 11.2 % (0.0-5.0); BG FRACTION INSPIRED OXYGEN 40; BG METHEMOGLOBIN 0.3 % (0.0-1.5); BG OXYGEN SATURATION 88.7 % (92.0-98.5); BG OXYHEMOGLOBIN 88.2 % (94.0-97.0); BG PCO2 29.9 mmHg (35.0-45.0); BG PH 7.503 (7.350-7.450); BG PO2 53.9 mmHg (75.0-100.0); BG SAMPLE SITE RIGHT RADIAL; BG TIDAL VOLUME(mL) 550 mL; BG TOTAL HEMOGLOBIN 8.8 g/dL (12.0-18.0); BG VENT MODE VENT - A/C; BG VENT RATE 16 set
[2018-03-13] MEDS ORDERED: POTASSIUM CHLORIDE INJ 60 MEQ in DEXT 5% WATER 500 ML IV NR (08:30)
[2018-03-13] MEDS: PANTOPRAZOLE SODIUM 40 MG/VIAL IV SCH (09:22)
[2018-03-13] MEDS: MIDODRINE HCL 5MG TABLET PO SCH ×2 (09:23→13:22)
[2018-03-13] MEDS ORDERED: ACETYLCYSTEINE 100MG/ML 10% VIAL 4ML INH SCH (10:00)
[2018-03-13] MEDS: NOREPINEPHRINE 16 MG in DEXT 5% WATER 234 ML IV PRN (11:33)
[2018-03-13 12:15] LABS: BG BASE EXCESS -5.6 mmol/L (-2.0-2.0); BG CARBOXYHEMOGLOBIN 0.3 % (0.5-1.5); BG DEOXYHEMOGLOBIN 25.3 % (0.0-5.0); BG HCO3 ACT 21.5 mmol/L (22.0-26.0); BG METHEMOGLOBIN 0.3 % (0.0-1.5); BG OXYGEN SATURATION 74.5 % (92.0-98.5); BG OXYHEMOGLOBIN 74.1 % (94.0-97.0); BG PCO2 49.6 mmHg (35.0-45.0); BG PH 7.254 (7.350-7.450); BG PO2 47.1 mmHg (75.0-100.0); BG SAMPLE SITE RIGHT BRACHIAL; BG TIDAL VOLUME(mL) 550 mL; BG TOTAL HEMOGLOBIN 9.1 g/dL (12.0-18.0); BG VENT MODE VENT - A/C; BG VENT RATE 16 set
[2018-03-13 12:49] LABS: PLATELET ESTIMATE DECREASED
== END 2018-03-13 14:00 | disposition expired | DRG 720 ==
LOC: ER 16:08 → MICUSO 21:56 → EDBEDREQ 22:01 → ENRESERV 03-07 01:18
PROVIDERS: ADMIT Internal Medicine; ATTEND Internal Medicine
PROC: 05H533Z Insertion of Infusion Device into Right Subclavian Vein, Percutaneous Approach (ICD-10-PCS; 2018-03-06)
PROC: 30233N1 Transfusion of Nonautologous Red Blood Cells into Peripheral Vein, Percutaneous Approach (ICD-10-PCS; 2018-03-06)
PROC: 0T2BX0Z Change Drainage Device in Bladder, External Approach (ICD-10-PCS; 2018-03-06)
PROC: 5A1955Z Respiratory Ventilation, Greater than 96 Consecutive Hours (ICD-10-PCS; principal; 2018-03-07)
PROC: 02H633Z Insertion of Infusion Device into Right Atrium, Percutaneous Approach (ICD-10-PCS; 2018-03-07)
PROC: B244ZZZ Ultrasonography of Right Heart (ICD-10-PCS; 2018-03-07)
PROC: 0BH17EZ Insertion of Endotracheal Airway into Trachea, Via Natural or Artificial Opening (ICD-10-PCS; 2018-03-07)
PROC: 5A1D70Z Performance of Urinary Filtration, Intermittent, Less than 6 Hours Per Day (ICD-10-PCS; 2018-03-07)
PROC: 5A1D70Z Performance of Urinary Filtration, Intermittent, Less than 6 Hours Per Day (ICD-10-PCS; 2018-03-12)
DX: A41.50 Gram-negative sepsis, unspecified (principal); N17.0 Acute kidney failure with tubular necrosis; J96.01 Acute respiratory failure with hypoxia; R65.21 Severe sepsis with septic shock; J69.0 Pneumonitis due to inhalation of food and vomit; G93.40 Encephalopathy, unspecified; L89.150 Pressure ulcer of sacral region, unstageable; R64 Cachexia; T83.098A Other mechanical complication of other urinary catheter, initial encounter; E43 Unspecified severe protein-calorie malnutrition; Z66 Do not resuscitate; C79.51 Secondary malignant neoplasm of bone; C19 Malignant neoplasm of rectosigmoid junction; N18.9 Chronic kidney disease, unspecified; E83.39 Other disorders of phosphorus metabolism; L89.610 Pressure ulcer of right heel, unstageable; D69.6 Thrombocytopenia, unspecified; Z51.5 Encounter for palliative care; E11.22 Type 2 diabetes mellitus with diabetic chronic kidney disease; R31.0 Gross hematuria; E87.5 Hyperkalemia; D68.59 Other primary thrombophilia; D53.9 Nutritional anemia, unspecified; N13.6 Pyonephrosis; Y83.8 Other surgical procedures as the cause of abnormal reaction of the patient, or of later complication, without mention of misadventure at the time of the procedure; Y92.89 Other specified places as the place of occurrence of the external cause; E11.649 Type 2 diabetes mellitus with hypoglycemia without coma; E11.65 Type 2 diabetes mellitus with hyperglycemia; E78.1 Pure hyperglyceridemia; E83.51 Hypocalcemia; R19.00 Intra-abdominal and pelvic swelling, mass and lump, unspecified site; I13.10 Hypertensive heart and chronic kidney disease without heart failure, with stage 1 through stage 4 chronic kidney disease, or unspecified chronic kidney disease; F20.9 Schizophrenia, unspecified; I44.0 Atrioventricular block, first degree; I45.10 Unspecified right bundle-branch block; I82.411 Acute embolism and thrombosis of right femoral vein; J45.909 Unspecified asthma, uncomplicated; Z99.2 Dependence on renal dialysis; Z88.6 Allergy status to analgesic agent; Z88.8 Allergy status to other drugs, medicaments and biological substances; Z79.84 Long term (current) use of oral hypoglycemic drugs; Z68.30 Body mass index [BMI] 30.0-30.9, adult
CPT/HCPCS: 31500; 36415; 36556; 36569; 36600; 70450; 70551; 71045; 74176; 76937; 78278; 80048; 80053; 80061; 80076; 80202; 80305; 81003; 82140; 82270; 82375; 82378; 82550; 82553; 82805; 82962; 83605; 83690; 83735; 84100; 84134; 84153; 84443; 84478; 84484; 85014; 85018; 85025; 85610; 86803; 86850; 86900; 86920; 87040; 87077; 87086; 87186; 87340; 93005; 93306; 93970; 94002; 94003; 94640; 94644; 96361; 96374; 96375; 99291; A4216; A9560; C1752; C9113; J0610; J0713; J1265; J1815; J1953; J2060; J2250; J2270; J2370; J2543; J2704; J3010; J3370; J3480; J3490; J7030; J7042; J7050; J7060; J7611; J7620; P9016; P9047; A4315; G0103